=== PATIENT | male | born 1990 | race African-American/Black ===

== ENCOUNTER 2024-03-30 21:06 | Emergency (ER) | payer OTHER | END 2024-03-30 23:22 | disposition home or self-care (01) | LOC: ERS 21:06 | DX: S06.0X0A Concussion without loss of consciousness, initial encounter (principal); S00.81XA Abrasion of other part of head, initial encounter; I10 Essential (primary) hypertension; Y04.8XXA Assault by other bodily force, initial encounter | CPT/HCPCS: 70450; 70486; 72125 ==